=== PATIENT | female | born 1960 | race Hispanic/Latino ===

== ENCOUNTER 2016-11-01 10:25 | Outpatient (CLI) | payer OTHER ==
--- NOTE | 2016-11-01 13:23 | Mammography Report ---
BILATERAL DIGITAL SCREENING MAMMOGRAM with CAD: 11/01/16 10:25:00 CLINICAL: Routine screening. COMPARISON:10/23/15 FINDINGS: The breasts are almost entirely fatty. No new mass, architectural distortion or suspicious calcifications. IMPRESSION: No mammographic evidence of malignancy. BI-RADS CATEGORY: 2 -- Benign RECOMMENDATION: Routine mammographic screening in one year. COMMENT: Patient follow-up letters are generated by our [employer] application.
--- NOTE | 2016-11-01 13:46 | XRay Report ---
Thoracic spine 2 views: History: Radiculopathy. Findings: Normal height of vertebral bodies. Decrease in height of intervertebral disc this is due to sclerotic articular surfaces of the left foot suggestive of degenerative changes. No fracture. No paravertebral mass. Impression: Degenerative dorsal spine.
--- NOTE | 2016-11-01 13:47 | XRay Report ---
Lumbar spine 2 views: History: Thoracic radiculitis. Findings: Mild scoliosis of the lumbar spine with convexity to left. Normal height of vertebral bodies with decrease in height of L3-4 and L4-L5 interspace. Sclerotic adjacent articular surfaces and peripheral osteophyte suggestive of degenerative changes. No fracture. No soft tissue calcification. Impression: Degenerative lumbar spine.
== END 2016-11-01 10:26 | disposition home or self-care (01) ==
LOC: SPVWC 10:25
PROVIDERS: ATTEND Internal Medicine
DX: Z12.31 Encounter for screening mammogram for malignant neoplasm of breast (principal); M47.896 Other spondylosis, lumbar region; M54.14 Radiculopathy, thoracic region; M41.86 Other forms of scoliosis, lumbar region; M25.78 Osteophyte, vertebrae; M47.894 Other spondylosis, thoracic region
CPT/HCPCS: 72072; 72100; G0202; 77067

== ENCOUNTER 2018-02-13 15:55 | Outpatient (CLI) | payer OTHER ==
--- NOTE | 2018-02-16 14:55 | Mammography Report ---
BILATERAL DIGITAL SCREENING MAMMOGRAM with CAD: 02/13/18 15:55:00 CLINICAL: Routine screening. COMPARISON:11/01/16 FINDINGS: The breasts are almost entirely fatty. No mass, architectural distortion or suspicious calcifications. IMPRESSION: No mammographic evidence of malignancy. BI-RADS CATEGORY: 1 - - Negative RECOMMENDATION: Routine mammographic screening in one year. COMMENT: Patient follow-up letters are generated by our [employer] application.
== END 2018-02-13 15:56 | disposition home or self-care (01) ==
LOC: SPVWC 15:55
PROVIDERS: ATTEND Internal Medicine
DX: Z12.31 Encounter for screening mammogram for malignant neoplasm of breast (principal)
CPT/HCPCS: 77067

== ENCOUNTER 2019-02-24 15:52 | Outpatient (CLI) | payer OTHER | END 2019-02-24 15:53 | disposition home or self-care (01) | LOC: SPVWC 15:52 | PROVIDERS: ATTEND Internal Medicine | DX: Z12.31 Encounter for screening mammogram for malignant neoplasm of breast (principal) | CPT/HCPCS: 77067 ==

== ENCOUNTER 2020-03-01 10:01 | Outpatient (CLI) | payer OTHER ==
--- NOTE | 2020-03-01 10:49 | Mammography Report ---
DIGITAL SCREENING MAMMOGRAM WITH CAD, 03/01/2020 INDICATION: Routine screening mammography. SCREENING MAMMOGRAM TECHNIQUE: Digital bilateral 2D mammography was obtained in the craniocaudal and mediolateral obliq ue projections. This examination was interpreted with the benefit of Computer-Aided Detection analysi s. COMPARISON: 02/24/2019 FINDINGS: Breast Density: There are scattered areas of fibroglandular density. There is no evidence of dominant mass, suspicious calcifications or architectural distortion in eithe r breast. Benign-appearing left nodularity is stable. Benign-appearing bilateral calcifications are s een. IMPRESSION: No evidence of malignancy Follow up recommendation: Routine yearly BI-RADS Category 2: Benign. A "normal" or negative report should not discourage follow up or biopsy of a clinically significant f inding. A written summary of these findings will be mailed to the patient. The patient will be entered into a mammography reporting system which will generate a reminder letter for the patient's next appointmen t at the appropriate interval. The [employer] recommends yearly mammograms starting at age 40 and continuing as l ahmet as a woman is in good health. Breast MRI is recommended for women with an approximate 20-25% or greater lifetime risk of breast cancer, including women with a strong family history of breast or ova krishna cancer or who have been treated for Hodgkin's disease. Signer Name: Antonio Staley MD Signed: 03/01/2020 10:45 AM Workstation Name: [id number]
== END 2020-03-01 10:02 | disposition home or self-care (01) ==
LOC: SPVWC 10:01
PROVIDERS: ATTEND Internal Medicine
DX: Z12.31 Encounter for screening mammogram for malignant neoplasm of breast (principal)
CPT/HCPCS: 77067

== ENCOUNTER 2021-03-13 12:54 | Outpatient (CLI) | payer OTHER ==
--- NOTE | 2021-03-13 13:50 | XRay Report ---
CHEST 2 VIEWS INDICATION / CLINICAL INFORMATION: Shortness of breath.. COMPARISON: None available. FINDINGS: SUPPORT DEVICES: None. HEART / MEDIASTINUM: No significant abnormality. LUNGS / PLEURA: No significant pulmonary or pleural abnormality. No pneumothorax. ADDITIONAL FINDINGS: No significant additional findings. IMPRESSION: 1. No acute findings. Signer Name: Indio Ortiz MD Signed: 03/13/2021 1:45 PM Workstation Name: [id number]
--- NOTE | 2021-03-13 14:03 | Mammography Report ---
BILATERAL DIGITAL SCREENING MAMMOGRAM WITH CAD HISTORY: Screening mammogram. TECHNIQUE: Routine digital mammographic imaging performed. This examination was interpreted with cesario melgoza benefit of Computer-aided Detection analysis. COMPARISON: 03/01/2020, 02/24/2019, 02/13/2018. FINDINGS: Breast Density: predominantly fatty breast parenchymal pattern. Digital CC and MLO views demonstrate no mammographic evidence of malignancy. Stable left upper outer posterior breast oval lesions, likely intramammary lymph nodes. IMPRESSION: No mammographic evidence of malignancy. If the clinical examination remains stable, recommend bilate ral mammogram in approximately one year. BIRADS 2: Benign Finding(s). FURTHER INFORMATION: According to the [employer], yearly mammograms are recommend ed starting at age 40 and continuing as long as a woman is in good health. Clinical Breast Exams shou ld be part of a periodic health exam-about every 3 years for women in their 20s and 30s and every yea r for women 40 and over. Breast self exam is an option for women starting in their 20s. Any breast ch ubaldo noted on a breast self exam should be reported promptly to the patient's healthcare provider. Br east MRI is recommended for women with an approximately 20-25% or greater lifetime risk of breast can cer, including women with a strong family history of breast or ovarian cancer and women who have been treated for Hodgkin's disease. A negative Mammography report should not discourage follow up or biopsy of a clinically significant f inding and/or abnormality. Dense breast tissue may obscure small neoplasms. The patient will be entered into a reminder system with a target due date for the next screening mamm ogram. Signer Name: Indio Ortiz MD Signed: 03/13/2021 1:58 PM Workstation Name: [id number]
== END 2021-03-13 12:55 | disposition home or self-care (01) ==
LOC: SPVWC 12:54
PROVIDERS: ATTEND Internal Medicine
DX: Z12.31 Encounter for screening mammogram for malignant neoplasm of breast (principal); J06.9 Acute upper respiratory infection, unspecified
CPT/HCPCS: 71046; 77067